=== PATIENT | male | born 1995 | race Two or more races ===

== ENCOUNTER 2023-11-06 04:07 | Emergency (ER) | payer BC ==
[~2023-11-06] VITALS: Ht 172.7 cm; Wt 74.8 kg
[2023-11-06 04:55] VITALS: TEMP 100
[2023-11-06] MEDS ORDERED: ACETAMINOPHEN ES 500 MG TABLET ONE (05:17)
[2023-11-06] MEDS: IV NS 0.9% 1,000 ML BAG IV ONE (05:25)
[2023-11-06] MEDS: ACETAMINOPHEN 325 MG TABLET PO ONE (05:25)
[2023-11-06 05:33] LABS: BASOPHILS % (AUTO) 0.2 % (0.0-2.0); HEMATOCRIT 50 % (39-51); HEMOGLOBIN 17.1 g/dL (13.5-17.5); LYMPHOCYTES # (AUTO) 0.7 K/uL (0.8-4.8); LYMPHOCYTES % (AUTO) 9.3 % (20.0-44.0); MEAN CORPUSCULAR HEMOGLOBIN 32 PG (26.0-33.0); MEAN CORPUSCULAR HGB CONC 34 g/dl (31.0-36.0); MEAN CORPUSCULAR VOLUME 92 fL (80-96); MONOCYTES # (AUTO) 0.3 K/uL (0.1-1.30); MONOCYTES % (AUTO) 3.8 % (2.0-12.0); NEUTROPHILS # (AUTO) 6.7 K/uL (1.8-8.9); NEUTROPHILS % (AUTO) 86.7 % (43.0-81.0); PLATELET COUNT (AUTO) 310 K/uL (150-450); RED BLOOD CELL COUNT(AUTO) 5.42 MIL/uL (4.5-6.0); RED CELL DISTRIBUTION WIDTH 13.3 % (11.5-15.0); WHITE BLOOD COUNT (AUTO) 7.8 K/uL (4.3-11.0)
[2023-11-06 05:34] LABS: APPEARANCE,URINE CLEAR (CLEAR); BILIRUBIN,URINE 1+ (NEGATIVE); BLOOD, URINE NEGATIVE Ery/uL (NEGATIVE); COLOR,URINE YELLOW (YELLOW); KETONES,URINE TRACE mg/dL (NEGATIVE); LEUKOCYTE ESTERASE ,URINE NEGATIVE (NEGATIVE); NITRITE, URINE NEGATIVE (NEGATIVE); PROTEIN,URINE 1+ mg/dl (NEGATIVE); UGLUCOSE NEGATIVE (NEGATIVE)
[2023-11-06 05:35] LABS: CALCIUM, SERUM 9.2 mg/dL (8.5-10.1); CREATININE 1.1 mg/dL (0.6-1.3); POTASSIUM 3.9 mmol/L (3.5-5.1)
[2023-11-06 05:42] LABS: ALBUMIN 4.3 g/dL (3.4-5.0); BILIRUBIN,DIRECT 0.1 mg/dL (0.0-0.2); BILIRUBIN,TOTAL 0.5 mg/dL (0.2-1.0); TOTAL PROTEIN, SERUM 8.6 g/dL (6.4-8.2)
[2023-11-06 06:09] LABS: ADD URINE CULTURE NO; BACTERIA,URINE Rare /HPF (None Seen); SQUAMOUS EPITHELIAL CELL,UR None Seen /HPF (None Seen); WBC,URINE 0-2 /HPF (0-3)
[2023-11-06 06:10] LABS: RBC,URINE 0-2 /HPF (0-2)
[2023-11-06] MEDS ORDERED: ONDA4TAB11 PO (06:47)
[2023-11-06] MEDS ORDERED: ACET-2605 PO (06:47)
[2023-11-06] MEDS ORDERED: LOPE2TAB25 PO (06:47)
[2023-11-06 07:04] VITALS: BP 117/79; O2SAT 99
== END 2023-11-06 07:05 | disposition home or self-care (01) ==
LOC: ER 04:14
DX: R19.7 Diarrhea, unspecified (principal); B34.9 Viral infection, unspecified; R51.9 Headache, unspecified; M79.10 Myalgia, unspecified site; F31.9 Bipolar disorder, unspecified; R09.81 Nasal congestion; Z20.822 Contact with and (suspected) exposure to COVID-19
CPT/HCPCS: 99283; 96360; 87426; 87804 ×2; 85025; 80048; 83690; 80076; 81001; 36415; J7030